=== PATIENT | male | born 1970 | race Caucasian/White ===

== ENCOUNTER 2016-11-02 10:08 | Day surgery (SDC) | payer OTHER ==
[~2016-11-02 10:08] MED LIST: METFORMIN500 M2 PO
[2016-11-02 12:21] VITALS: BP 124/79
== END 2016-11-02 12:32 | disposition home or self-care (01) | DRG 346 ==
LOC: ENDO 10:08 → ORM 13:45 → ENDO 13:45 → ORM 17:30
PROVIDERS: ATTEND Internal Medicine Gastroenterology
PROC: 0DBK0ZX Excision of Ascending Colon, Open Approach, Diagnostic (ICD-10-PCS; principal; 2016-11-02)
PROC: 0DBN0ZX Excision of Sigmoid Colon, Open Approach, Diagnostic (ICD-10-PCS; 2016-11-02)
PROC: 0DBP0ZX Excision of Rectum, Open Approach, Diagnostic (ICD-10-PCS; 2016-11-02)
PROC: 0DBL8ZX Excision of Transverse Colon, Via Natural or Artificial Opening Endoscopic, Diagnostic (ICD-10-PCS; 2016-11-02)
PROC: 0DBM8ZX Excision of Descending Colon, Via Natural or Artificial Opening Endoscopic, Diagnostic (ICD-10-PCS; 2016-11-02)
DX: K57.30 Diverticulosis of large intestine without perforation or abscess without bleeding (principal); D12.2 Benign neoplasm of ascending colon; R10.32 Left lower quadrant pain; K64.4 Residual hemorrhoidal skin tags; K64.8 Other hemorrhoids; D12.4 Benign neoplasm of descending colon; D12.5 Benign neoplasm of sigmoid colon; D12.8 Benign neoplasm of rectum; K63.5 Polyp of colon

== ENCOUNTER 2018-01-17 06:18 | Day surgery (SDC) | payer OTHER ==
[~2018-01-17] VITALS: Ht 177.8 cm; Wt 117.9 kg
[2018-01-17 08:59] VITALS: BP 116/78
== END 2018-01-17 08:48 | disposition home or self-care (01) | DRG 392 ==
LOC: ENDO 06:18 → ORM 07:45 → ENDO 07:45
PROVIDERS: ATTEND Internal Medicine Gastroenterology
PROC: 0DBL8ZX Excision of Transverse Colon, Via Natural or Artificial Opening Endoscopic, Diagnostic (ICD-10-PCS; principal; 2018-01-17)
PROC: 0DB98ZX Excision of Duodenum, Via Natural or Artificial Opening Endoscopic, Diagnostic (ICD-10-PCS; 2018-01-17)
PROC: 0DB48ZX Excision of Esophagogastric Junction, Via Natural or Artificial Opening Endoscopic, Diagnostic (ICD-10-PCS; 2018-01-17)
PROC: 0D758DZ Dilation of Esophagus with Intraluminal Device, Via Natural or Artificial Opening Endoscopic (ICD-10-PCS; 2018-01-17)
DX: K57.30 Diverticulosis of large intestine without perforation or abscess without bleeding (principal); D12.3 Benign neoplasm of transverse colon; K64.4 Residual hemorrhoidal skin tags; K64.8 Other hemorrhoids; K21.9 Gastro-esophageal reflux disease without esophagitis; R13.10 Dysphagia, unspecified; K29.50 Unspecified chronic gastritis without bleeding; K31.9 Disease of stomach and duodenum, unspecified; K31.89 Other diseases of stomach and duodenum; Z86.010 Personal history of colon polyps